=== PATIENT | female | born 1965 | race Caucasian/White ===

== ENCOUNTER → 2019-09-27 | Day surgery (SDC) | payer OTHER ==
[~2019-09-27] MED LIST: ADDERALL 20 MG20 MG PO; AZELASTINE137 MCG/0.; FENTANYL CITRATE/PF 100MCG/2 ML INJ ONE; HYOSCYAMINE 0.125 MG TAB ONE; METOCLOPRAMIDE HCL 10 MG/2ML VIAL ONE; MIDAZOLAM HCL 2 MG/2 ML VIAL ONE; MULTIVITAMINS1 EAC7 PO; PANTOPRAZOLE SO40 MG PO; PROPOFOL IV EMULSION 10 MG/ML 50 ML VIAL ONE; SYNTHROID100 MCG PO; VITAMIN D400 UNIT PO; XYZAL5 MG PO
--- OUTSIDE RECORDS SUMMARY | 2019-09-27 10:59 | XMS REPORT ---
Author Author [facility] Address Unknown Phone Unavailable Care Team Providers Care Dry Molder Name Role Phone Unavailable Unavailable Problems This patient has no known problems. Allergies, Adverse Reactions, Alerts This patient has no known allergies or adverse reactions. Medications This patient has no known medications. Results Test Description Test Time Test Comments Text Results Atomic Results Result Comments SCR MAMM BILATERAL VIDA CAD DIGITAL W/AUGMENTATION 2019-09-19 08:29:36 - SCR MAMM BILATERAL VIDA CAD DIGITAL W/AUGMENTATIONBILATERAL DIGITAL SCREENING MAMMOGRAM 3D/2D WITH CAD WITH AUGMENTATION: 09/19/2019CLINICAL: Asymptomatic. Digital breast tomosynthesis was performed in addition to routine CC and MLO views. Current mammographic images were evaluated by either a [employer] M-Vu or a [employer] ImageChecker CAD (computer aided detection system). Comparison is made to exams dated 04/10/2018 mammogram, 03/15/2017 mammogram, and 02/24/2016 mammogram - [facility]-. The tissue of both breasts is predominantly fatty. Bilateral retropectoral saline breast implants are stable and intact. No suspicious mass, architectural distortion, malignant type calcification, or lymph node abnormality detected. Breast architecture is stable compared to prior exams.IMPRESSION: BENIGNThere is no mammographic evidence of malignancy. Resume annual screening mammography in one year. Rachna Zamora M.D. yaq/:09/19/2019 08:29:36 Pediatric Orthodontist: Erika ORR, [facility]-FWletter sent: BIRADS 1-2 Normal Mammogram BI-RADS: 2 Benign
--- OUTSIDE RECORDS SUMMARY | 2019-09-27 10:59 | XMS REPORT | Summary of Care ---
Author Author PRASANTH Peña, STEFANIA Tilley Unknown Address [facility] Phone Unavailable Care Team Providers Care Imitation Marble Mechanic Name Role Phone MARCK Peña, MIRNA Unavailable Unavailable YOLI Peña, VALARIE Unavailable Unavailable ALEXANDRE N.P., ЕЛЕНА Unavailable Unavailable PRASANTH Peña, STEFANIA Unavailable Unavailable VALENTINA P.A., ZOË Unavailable Unavailable DARY N.P., APRIL Unavailable Unavailable YOLI MACKAY, VALARIE Oro Unavailable Unavailable MARCK MOSER MD, MIRNA Ly Unavailable Unavailable Prasanth MACKAY, Stefania Unavailable Unavailable DARY CIGAR TOBACCO PROCESSING SUPERVISOR, APRIL Unavailable Unavailable MANSI MACKAY, VANESSA S Unavailable Unavailable Unavailable Unavailable Functional Status Name Dates Details Functional status health issues are not documented Status: Name Dates Details Cognitive status health issues are not documented Status: Problems Name Dates Details GERD without esophagitis (530.81, K21.9) Status: Active Normal routine physical examination (V70.0, Z00.00) Status: Active Allergic rhinitis (477.9, J30.9) Status: Active Hyperlipidemia (272.4, E78.5) Status: Active Hyperglycemia (790.29, R73.9) Status: Active Influenza vaccine needed (V04.81, Z23) Status: Active Adult onset hypothyroidism (244.8, E03.8) Status: Active Thyroid adenoma (226, D34) Status: Active Acute bacterial bronchitis (466.0, J20.8) Status: Active Hemoptysis (786.30, R04.2) Status: Active Sore throat (462, J02.9) Status: Active 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 Active Levothyroxine Sodium 75 MCG Oral Tablet TAKE 1 TABLET BY MOUTH DAILY DIRECTED * Quantity: 90 Refills: 0 STEFANIA KEANE M.D. * Start : 09-May-2014 Active Multi-Vitamins TABS * Refills: 0 Active Fish Oil 1000 MG Oral Capsule * Refills: 0 Active Niacin 500 MG Oral Tablet TAKE 1 TABLET DAILY * Refills: 0 Active Biotin TABS TAKE 1 TABLET DAILY * Refills: 0 Active EpiPen 2-Sven 0.3 MG/0.3ML Injection Solution Auto-injector Use as directed for severe allergic reaction and proceed to ER. * Quantity: 1 Refills: 2 ЕЛЕНА ALEXANDRE N.P. * Start : 01-Apr-2014 Active 2 Unit Pen Pantoprazole Sodium 40 MG Oral Tablet Delayed Release TAKE 1 TABLET DAILY. * Quantity: 90 Refills: 1 VALARIE KENT M.D. * Start : 07-Aug-2018 Active Dymista 137-50 MCG/ACT Nasal Suspension 1 spray per nostril bid * Quantity: 1 Refills: 3 ЕЛЕНА ALEXANDRE N.P. * Start : 12-Jun-2018 Active 23 GM Bottle Shingrix 50 MCG Intramuscular Suspension Reconstituted INJECT 1 ML ONCE * Quantity: 2 Refills: 0 VALARIE KENT M.D. * Start : 23-Aug-2018 Active predniSONE 20 MG Oral Tablet Take 1 tab by mouth twice daily for 7 days, then once daily for 7 days * Quantity: 21 Refills: 0 APRIL FOOTE N.P. * Start : 18-Oct-2018 Active Ventolin HFA 108 (90 Base) MCG/ACT Inhalation Aerosol Solution INHALE 1 TO 2 PUFFS BY MOUTH EVERY 4 TO 6 HOURS NEEDED * Quantity: 1 Refills: 2 ZOË EVERETT * Start : 29-Oct-2018 Active 8 GM Inhaler B Complex TABS * Refills: 0 Active Meloxicam 7.5 MG Oral Tablet TAKE 1 TABLET DAILY WITH FOOD. * Quantity: 30 Refills: 3 MIRNA ACHARYA M.D. * Start : 13-May-2019 Active Allergies and Adverse Reactions Name Dates Details Cephalosporins (Allergy) Status: Active Codeine Derivatives (Allergy) Status: Active Rocephin IM Convenience KIT (Allergy) Status: Active Past Medical History Name Dates Details Influenza vaccine needed (V04.81, Z23) Status: Active History of Biggs esophagus (530.85, K22.70) Status: Resolved History of colon polyps (V12.72, Z86.010) Status: Resolved Procedures Procedure Dates Details History of Hysterectomy Completed History of Knee Surgery Completed History of Biopsy Thyroid Using Percutaneous Core Needle Completed Immunization Name Dates Details Influenza Lot #: [id number] on: 05-Sep-2013 Influenza on: Sep-2014 Tdap on: Nov-2014 Fluzone Quadrivalent 0.5 ML Intramuscular Suspension on: 20-Aug-2017 Fluzone Quadrivalent 0.5 ML Intramuscular Suspension Lot #: [id number] on: 23-Aug-2018 Family History Name Dates Details Family history of hypothyroidism (V18.19, Z83.49) Status: Active Name Dates Details Family history of hypothyroidism (V18.19, Z83.49) Status: Active Name Dates Details Family history of hypothyroidism (V18.19, Z83.49) Status: Active Name Dates Details Family history of hypothyroidism (V18.19, Z83.49) Status: Active Name Dates Details Family history of malignant neoplasm of thyroid (V16.8, Z80.8) Status: Active Name Dates Details Family history of Heart Disease (V17.49) Status: Active Name Dates Details Family history of essential hypertension (V17.49, Z82.49) Status: Active Family history of hyperlipidemia (V18.19, Z83.438) Status: Active Family history of kidney stones (V18.69, Z84.1) Status: Active Name Dates Details Family history of diabetes mellitus (V18.0, Z83.3) Status: Active Family history of essential hypertension (V17.49, Z82.49) Status: Active Family history of hyperlipidemia (V18.19, Z83.438) Status: Active Family history of kidney stones (V18.69, Z84.1) Status: Active Family history of malignant neoplasm (V16.9, Z80.9) Status: Active Social History Name Dates Details - Status: Name Dates Details Never smoker Vital Signs Date Test Result Details No Known Vitals to report Results Date Description Value Details Results not documented Plan of Care Name Dates Details Planned Observations Planned Goals not documented Planned Encounters Appointment; STEFANIA KEANE M.D. On: 04-Jul-2019 14:00 Appointment; MIRNA ACHARYA M.D. On: 08-Jul-2019 15:15 Interventions Provided Medication Changes* Levothyroxine Sodium 75 MCG Oral Tablet - Renew Instructions Name Dates Details Instructions not documented Encounters Appointment; VALARIE KENT M.D. Encounter Diagnosis: Problem not documented On: 20-Feb-2018 14:15 Appointment; ЕЛЕНА ALEXANDRE NP Encounter Diagnosis: Problem not documented On: 12-Jun-2018 15:30 Appointment; STEFANIA KEANE M.D. Encounter Diagnosis: Problem not documented On: 12-Jul-2018 14:00 Appointment; VALARIE KENT M.D. Encounter Diagnosis: Problem not documented On: 23-Aug-2018 15:00 Appointment; VALARIE KENT M.D. Encounter Diagnosis: Problem not documented On: 23-Aug-2018 15:00 Appointment; APRIL FOOTE NP Encounter Diagnosis: Problem not documented On: 18-Oct-2018 15:00 Appointment; ZOË MONTGOMERY P.A. Encounter Diagnosis: Problem not documented On: 29-Oct-2018 10:30 Appointment; STEFANIA KEANE M.D. Encounter Diagnosis: Problem not documented On: 07-Jan-2019 16:00 Appointment; APRIL FOOTE NP Encounter Diagnosis: Problem not documented On: 26-Mar-2019 16:00 Appointment; STEFANIA KEANE M.D. Encounter Diagnosis: Problem not documented On: 28-Mar-2019 15:30 Appointment; VANESSA NAZARIO M.D. Encounter Diagnosis: Problem not documented On: 05-Apr-2019 8:00 Appointment; VANESSA NAZARIO M.D. Encounter Diagnosis: Problem not documented On: 03-May-2019 8:30 Appointment; MIRNA ACHARYA M.D. Encounter Diagnosis: Problem not documented On: 13-May-2019 15:30
[2019-09-27 15:45] VITALS: BP 131/88
--- NOTE | 2019-09-27 21:44 | Operative Report ---
DATE OF PROCEDURE: 09/27/2019 SURGEON: Harley Plaza MD PROCEDURES: EGD with biopsies and colonoscopy with polypectomy. INDICATIONS FOR EGD: History of Biggs's esophagus and bloating. INDICATIONS OF COLONOSCOPY: Surveillance colonoscopy, personal history of colon polyps. MEDICATIONS: The patient was done under MAC. Please see anesthesiologist's note. DESCRIPTION OF PROCEDURE: With the patient in left lateral decubitus position, the flexible fiberoptic Olympus gastroscope was introduced into the esophagus under direct visualization without any difficulty. There was some patchy erythema noted in distal esophagus. Minute tongues of velvety red mucosa were noted to extend proximally from the GE junction and biopsies were obtained. The scope was then advanced with ease into the stomach traversing a small sliding hiatal hernia. Mucosa overlying the antrum and the body revealed some patchy erythema and low-grade to moderate edema and biopsies were obtained and sent to stain for H pylori. The pylorus was of normal contour and shape. It was intubated with ease and the scope was advanced all the way to the second portion of the duodenum. Biopsies were obtained from the second portion and duodenal bulb to rule out sprue. The scope was then withdrawn back into the stomach and retroflexed and mucosa overlying the fundus and cardia appeared to be within normal limits. The scope was then straightened out. It was subsequently withdrawn. The patient tolerated the procedure well. IMPRESSION: 1. Mild distal esophagitis. 2. Biggs's esophagus. 3. Small sliding hiatal hernia. 4. Gastritis, biopsied. Biopsies sent to stain for H pylori. 5. Rule out sprue. PLAN: Follow up histology. Increase Protonix to 40 mg one p.o. a.c. b.i.d. The patient was then turned around after adequate lubrication of the anal canal. A flexible fiberoptic Olympus colonoscope was inserted into the rectum with ease and advanced all the way to the cecum. Minute polyp was removed per the cold biopsy forceps from the cecum. The scope was then withdrawn slowly. Mucosa overlying the ascending and the transverse appeared to be within normal limits as well as the descending colon. Diverticular disease was noted in the sigmoid colon. One polyp was hot biopsied from the sigmoid colon. The rectum appeared to be within normal limits. The scope was then retroflexed into the distal rectum and small internal hemorrhoids were noted, none of which was actively bleeding. The scope was then straightened out. It was subsequently withdrawn. The patient tolerated the procedure well. IMPRESSION: 1. Cecal polyp, cold biopsied. 2. Diverticulosis. 3. Sigmoid colon polyp, hot biopsied. 4. Internal hemorrhoids, none actively bleeding. PLAN: Followup histology. Initiate high-fiber, low-fat diet. Initiate high-fiber supplement. The patient might benefit from a followup colonoscopy in 3 to 5 years. Harley Plaza MD [facility] [place] /[id number] cc: Griselda Kirk MD
== END | disposition home or self-care (01) ==
LOC: OR 10:55
PROVIDERS: ATTEND Internal Medicine Gastroenterology
DX: R12 Heartburn (principal); R14.0 Abdominal distension (gaseous); K20.9 Esophagitis, unspecified; K44.9 Diaphragmatic hernia without obstruction or gangrene; Z86.010 Personal history of colon polyps; K22.70 Barrett's esophagus without dysplasia; Z88.1 Allergy status to other antibiotic agents; Z88.5 Allergy status to narcotic agent; E03.9 Hypothyroidism, unspecified; K29.70 Gastritis, unspecified, without bleeding; K63.5 Polyp of colon; K57.30 Diverticulosis of large intestine without perforation or abscess without bleeding; K64.8 Other hemorrhoids; D12.0 Benign neoplasm of cecum; Z01.810 Encounter for preprocedural cardiovascular examination
CPT/HCPCS: 43239; 45380; 45384; 93005; J2250; J2704; J2765; J3010